=== PATIENT | female | born 1955 | race Caucasian/White ===

== ENCOUNTER 2017-03-22 08:48 | Day surgery (SDC) | payer BC ==
--- NOTE | 2017-03-14 19:32 | HP ---
HISTORY AND PHYSICAL: DATE OF ADMISSION: 03/22/17 She will be entering [facility] on 03/22/17 for a right knee arthroscopic surgery. CHIEF COMPLAINT: Right knee medial pain. HISTORY OF PRESENT ILLNESS: The patient is an avid hiker and she has been unable to do her workout activities for the past several months. She has a right knee medial meniscal tear with continued pain and problems. It has not responded to rest or physical therapy and right knee arthroscopic surgery has been recommended. PAST SURGICAL HISTORY: She is status post cholecystectomy and hysterectomy. MEDICATIONS: Daily meds include: 1. Synthroid 125 mcg each day. 2. Amlodipine 10 mg each day for hypertension. ALLERGIES: None to drugs. SOCIAL HISTORY: No smoking. Drinking is occasional, not daily, 1 glass of wine. REVIEW OF SYSTEMS: The patient has no history of chest pain or shortness of breath. She is able to do 2 flights of stairs without chest pain, without shortness of breath. Currently, she is doing that one at a time because of the right knee difficulties. No past history of cancer. No history of DVT or pulmonary embolism. No history of pneumonia or bronchitis. No kidney problems. No hepatitis. No bleeding tendencies or blood transfusions. PHYSICAL EXAMINATION GENERAL: She is well nourished, well developed, not acutely distressed. VITAL SIGNS: On current examination, 67 inches in height, 200 pounds. Blood pressure 132/78, the temp is 97.2. HEENT: The head is NC/AT. LUNGS: Clear bilaterally. HEART: Regular. S1, S2 normal. A small systolic murmur. ABDOMEN: Round, soft, nontender. There is no organomegaly. EXTREMITIES: The right knee has tenderness medially. Normal alignment. Stable MCL, LCL, Nova, and posterior drawer. The knee is nontender anterolaterally, posteriorly. The right posterior tibial pulse is 2+. The patient does an easy leg raise with a right knee extension 0, flexion is 115 degrees. NEUROLOGIC: The cranial nerves are grossly intact. DIAGNOSTIC STUDIES: The MRI scan was done in February showing a medial meniscal tear. IMPRESSION: Right knee medial meniscal tear. PLAN: Right knee arthroscopic surgery. [id number]/[facility] #: [id number] [facility]
[~2017-03-22 08:48] MED LIST: Buffered Lidocaine 0.9% SYRIN* 5 ML/SYR SYRINGE INTRADERM ONE; Midazolam* 1 MG/ML 2 ML VIAL (2 MG) ONE; fentaNYL* 50 MCG/ML 2 ML VIAL (100 MCG VIAL) ONE
[2017-03-22] MEDS ORDERED: ceFAZolin 2 GM PREMIX (*) 2 GM/50 ML BAG IVPB ONE (08:56)
[2017-03-22] MEDS ORDERED: Buffered Lidocaine 0.9% SYRIN* 5 ML/SYR SYRINGE ONE (08:56)
[2017-03-22] MEDS ORDERED: Lidocaine 1% MPF wEPI 200,000* 30 ML SDV ONE (10:43)
[2017-03-22] MEDS ORDERED: Propofol* 10 MG/ML 20 ML BTL IV PUSH ONE ×2 (12:26→12:57)
[2017-03-22] MEDS ORDERED: Ondansetron INJ* 2 MG/ML VIAL ONE (12:26)
[2017-03-22] MEDS ORDERED: Phenylephrine IV* 40 MCG/ML 10 ML SYRINGE ONE (12:26)
[2017-03-22] MEDS ORDERED: fentaNYL* 50 MCG/ML 2 ML VIAL (100 MCG VIAL) ONE (12:26)
[2017-03-22] MEDS ORDERED: Dexamethasone IV* 4 MG/ML 1 ML (4 MG) ONE (12:26)
[2017-03-22] MEDS ORDERED: Ketorolac INJ* 30 MG/ML 1 ML VIAL ONE (12:46)
[2017-03-22] MEDS ORDERED: Sevoflurane* 1 BTL ONE (12:46)
[2017-03-22] MEDS ORDERED: HYDROmorphone INJ* 1 MG/ML CARPUJECT SYRINGE ONE (14:15)
[2017-03-22 14:57] VITALS: BP 132/80
--- NOTE | 2017-03-23 04:05 | OP ---
DATE OF OPERATION: 08/27/16 - [facility] DATE OF : 51 SURGICAL CARE: Right knee. SURGEON: José Miguel Carter MD CLINICAL PROGRAM MANAGER: DES Dumas ANESTHESIOLOGIST: Dr. Joaquin. ANESTHESIA: LMA general. 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 POST-OP DIAGNOSIS: Loose bodies, right knee; patellofemoral chondromalacia and I felt the medial meniscus was in satisfactory condition for no surgical care. OPERATIVE PROCEDURE: Right knee, removal of loose bodies and chondroplasty of the patellofemoral joint. COMPLICATIONS: There were no complications. BLOOD LOSS: 50 mL. REPLACEMENT: Crystalloid fluids. Tourniquet control was utilized on the right thigh. DESCRIPTION OF PROCEDURE: The patient was brought to the operating room and placed on the operating room table in a supine position. Following the administration of the anesthetic, the right proximal thigh was wrapped with a tourniquet. The right knee was given a preliminary chlorhexidine prep and the leg was then prepped from the tourniquet to the foot and draped free and carefully sealed off in the usual fashion for arthroscopic surgery of the knee. After prepping, draping and sealing off, we did our universal protocol time- out confirming Kayla Vera and a plan for right knee arthroscopic surgery. We all agreed and we proceeded. The leg was exsanguinated. The tourniquet was elevated to 275. The right knee was set up for arthroscopy with the arthroscope lateral to the patellar tendon probe and operating instruments medial to the patellar tendon and inflow catheters superomedial to the patella. The irrigation of the joint showed that there were 4 loose bodies that were white and appeared to be cartilaginous. They were 1 to 2 mm in thickness x 3 mm in width x 4 mm in length. The knee was set up for arthroscopy and there was loose body in the patellofemoral joint that was similar in size to the ones already described. This was one more like 2 mm thick and 4 mm x 4 mm. The patella had cartilage yellowing, thinning and loss and the trochlea had cobblestoning and cartilage thinning and loss with some flaps. Both the patella and the trochlea were shaved from the medial and lateral portals in the course of the case. The medial and lateral gutters were clear. The posteromedial joint visualized through the intercondylar notch had loose body that was suctioned out. The posteromedial femoral condyle appeared to be satisfactory. The PCL appeared to be satisfactory as well as the ACL. The lateral femoral condyle, lateral tibial plateau, just slight cartilage where the lateral meniscus did not have any marked tearing that I could appreciate, the lateral meniscus was mobile with suctioning, but no loose flaps or loose ends. On the medial joint, the medial femoral condyle did have cartilage and some fissuring and flapping. This was shaved minimally. The medial meniscus was probed mid and posteriorly. There were no large flaps or large gaps that I could appreciate and I did not recommend any surgery there. The medial tibial plateau, some cartilage yellowing and thinning but no large flaps or tearing or loss. My impression was that the loose bodies were probably from the patellofemoral joint. Once the surgical care was complete, we did our further photographs. The knee was irrigated with another 3 L of saline irrigation solution after deflating the tourniquet and the skin was closed with interrupted 3-0 Surgipro and the knee was instilled with Xylocaine with epinephrine 28 to 30 mL. The knee was then washed and dried and covered with Betadine soaked release, followed by sterile gauze and sterile Webril, a cryotherapy cuff, ABD pads and a 6-inch Sukhi bandage loosely applied. The patient was returned to recovery room in stable and satisfactory condition, having tolerated the procedure every well. [id number]/[facility] #: [id number] MTDKarl
== END 2017-03-22 15:20 | disposition home or self-care (01) ==
LOC: OR 08:48
PROVIDERS: ATTEND Orthopaedic Surgery
DX: M94.261 Chondromalacia, right knee (principal); E03.9 Hypothyroidism, unspecified; I10 Essential (primary) hypertension; M23.41 Loose body in knee, right knee
CPT/HCPCS: 88304; A9270-GY; J0690; J1100; J1170; J1885; J2001; J2250; J2405; J2704; J3010

== ENCOUNTER 2017-08-21 12:51 | Emergency (ER) | payer BC ==
[2017-08-21 15:06] VITALS: BP 135/79
[2017-08-21] MEDS ORDERED: Tetracaine 0.5% OPTH.SOL 4 ML* 1 DROP BTL LEFT EYE ONE (15:19)
--- NOTE | 2017-08-21 15:19 | UC ---
General HPI - HPI Summary HPI Summary: pt was poked in her L eye by the end of some wire farm fencing yesterday. she was wearing a contact which remained intact and a piece of dirt remained which she was able to remove. she notes outside of the eye is irritated and red. wearing an old pair of glasses. last tetanus is not known. denies visual loss. - History of Current Complaint Chief Complaint: UCEye Stated Complaint: EYE COMPLAINT Time Seen by Provider: 08/21/17 15:07 Hx Obtained From: Patient Onset/Duration: Sudden Onset Timing: Constant Pain Intensity: 4 Aggravating: nothing Alleviating: nothing Associated Signs & Symptoms: Negative: Fever, Headache - Allergy/Home Medications Allergies/Adverse Reactions: Allergies Allergy/AdvReac Type Severity Reaction Status Date / Time No Known Allergies Allergy Verified 08/21/17 15:06 Home Medications: Home Medications Levothyroxine TAB* [Synthroid TAB*] 125 mcg PO DAILY 08/21/17 [History Confirmed 08/21/17] amLODIPine TAB* [Norvasc 5 mg TAB*] 10 mg PO DAILY 08/21/17 [History Confirmed 08/21/17] PMH/Surg Hx/FS Hx/Imm Hx Endocrine History: Thyroid Disease - Surgical History Surgical History: Yes Surgery Procedure, Year, and Place: HYSTERECTOMY-1997. gall bladder removal. Rt ANKLE - W/ SCREWS & PLATE - Family History Known Family History: Positive: None Family History: no cardio-vascular issues reported by patient - Social History Occupation: Retired Lives: With Family Alcohol Use: Occasionally Substance Use Type: None Smoking Status (MU): Never Smoked Tobacco Have You Smoked in the Last Year: No Review of Systems Eyes: Eye Redness - L Is Patient Immunocompromised?: No All Other Systems Reviewed And Are Negative: Yes Physical Exam Triage Information Reviewed: Yes Appearance: Well-Appearing Vital Signs: Initial Vital Signs Temp 99.9 F 08/21/17 15:01 Pulse 80 08/21/17 15:01 Resp 17 08/21/17 15:01 BP 135/79 08/21/17 15:01 Pulse Ox 99 08/21/17 15:01 Vital Signs Reviewed: Yes Eyes: Positive: Other: - vision od, ou, os 20/40 with old glasses. no periorbital edema or erythema. PERRL, EOMI, AC's clear. Lateral left eye injected with overt abrasion to naked eye. subconjuctival hemorrhage as well. tetracaine placed in L eye, lids everted and no FB's. Eye stained and no fluid leaking/no perforation, no dendrites. Horzontal abrasion to lateral sclera. No auricular adenopathy. ENT: Positive: Pharynx normal, TMs normal. Negative: Nasal congestion, Nasal drainage Neck: Positive: Supple, Nontender, No Lymphadenopathy Respiratory: Positive: Lungs clear, Normal breath sounds Cardiovascular: Positive: RRR, No Murmur Abdomen Description: Positive: Nontender, No Organomegaly, Soft Bowel Sounds: Positive: Present Musculoskeletal: Positive: ROM Intact Neurological: Positive: Alert Psychological: Positive: Age Appropriate Behavior Skin Exam: Normal Course/Dx - Course Course Of Treatment: no FB's or perforation. + scleral abrasion and subconjunctival hemorrhage. i was able to speak with Dr López. I will start pt on polytrim. Pt to f/u with them tomorrow for a recheck. - Differential Dx - Multi-Symptom Provider Diagnoses: Scleral abrasion and subconjunctival hemorrhage L eye Discharge - Sign-Out/Discharge Documenting (check all that apply): Discharge/Admit/Transfer - Discharge Plan Condition: Stable Disposition: HOME Prescriptions: Polymyx/Trimethoprim OPTH* [Polytrim OPHTH*] 1 drop LEFT EYE Q3H 7 Days #1 btl Patient Education Materials: Subconjunctival Hemorrhage (ED), Eye Foreign Body (ED) Referrals: Jayson Leung MD [Primary Care Provider] - If Needed Elaine López MD [Medical Doctor] - 1 Day Additional Instructions: CALL THE OFFICE OF DR LÓPEZ 8AM TOMORROW. ADVISE PAWEL BROWNLEE SPOKE TO HER AND SHE WOULD LIKE YOU SEEN Tuesday08/22/17 AND THEY WILL GET YOU IN. - Billing Disposition and Condition Condition: STABLE Disposition: HOME
[2017-08-21] MEDS ORDERED: Tetan/Diph/Pertus SYR(Tdap)* 0.5 ML SYR(BOOSTRIX) use SYR IM ONE (15:20)
[2017-08-21] MEDS ORDERED: Fluorescein Sod TOPICAL 0.6* 0.6 MG TEST OPHTHALMIC ONE (15:20)
== END 2017-08-21 16:07 | disposition home or self-care (01) ==
LOC: UCCORT 12:51
DX: S05.02XA Injury of conjunctiva and corneal abrasion without foreign body, left eye, initial encounter (principal); H11.32 Conjunctival hemorrhage, left eye; W22.8XXA Striking against or struck by other objects, initial encounter; Y93.89 Activity, other specified; Y92.9 Unspecified place or not applicable; E07.9 Disorder of thyroid, unspecified
CPT/HCPCS: 90471; 90715; 99212; A9270-GY; G0463

== ENCOUNTER 2018-02-22 07:14 | Emergency (ER) | payer BC ==
[2018-02-22 07:29] VITALS: BP 168/89
--- NOTE | 2018-02-22 08:38 | UC ---
Ear Complaint HPI - HPI Summary HPI Summary: 2 DAYS OF RIGHT EAR PAIN AND MUTED HEARING. SMALL AMOUNT OF DRAINAGE FROM THE EAR TODAY. DENIES FEVER OR URI SYMPTOMS. HAS BEEN DOING A LOT OF SWIMMING IN A POOL RECENTLY. - History of Current Complaint Chief Complaint: UCEar Stated Complaint: R EAR PAIN Time Seen by Provider: 02/22/18 07:18 Hx Obtained From: Patient Onset/Duration: Gradual Onset, Lasting Days, Still Present Severity Initially: Moderate Severity Currently: Moderate Pain Intensity: 2 Pain Scale Used: 0-10 Numeric Aggravating Factors: Nothing Alleviating Factors: Nothing Associated Signs/Symptoms: Positive: Discharge, Hearing Loss. Negative: URI Symptoms - Allergies/Home Medications Allergies/Adverse Reactions: Allergies Allergy/AdvReac Type Severity Reaction Status Date / Time No Known Allergies Allergy Verified 08/21/17 15:06 PMH/Surg Hx/FS Hx/Imm Hx Endocrine History: Hypothyroidism Cardiovascular History: Hypertension - Surgical History Surgical History: Yes Surgery Procedure, Year, and Place: HYSTERECTOMY-1997. gall bladder removal. Rt ANKLE - W/ SCREWS & PLATE - Family History Known Family History: Positive: Hypertension - Social History Alcohol Use: Weekly Substance Use Type: None Smoking Status (MU): Never Smoked Tobacco Have You Smoked in the Last Year: No Review of Systems Constitutional: Negative Respiratory: Negative Cardiovascular: Negative Gastrointestinal: Negative All Other Systems Reviewed And Are Negative: Yes Physical Exam Triage Information Reviewed: Yes Appearance: Well-Appearing, No Pain Distress, Well-Nourished Vital Signs: Initial Vital Signs Temp 98.7 F 02/22/18 07:22 Pulse 83 02/22/18 07:22 Resp 16 02/22/18 07:22 BP 168/89 02/22/18 07:22 Pulse Ox 99 02/22/18 07:22 Vital Signs Reviewed: Yes Eyes: Positive: Conjunctiva Clear ENT: Positive: Hearing grossly normal, Pharynx normal, Other - LEFT TM NORMAL. RIGHT EAR: EAC EDEMATOUS. TM NOT COMPLETELY VISUALIZED. PAIN WITH TRACTION ON PINNA AND PRESSURE ON TRAGUS Neck: Positive: Supple, Nontender, No Lymphadenopathy Respiratory: Positive: No respiratory distress, No accessory muscle use Cardiovascular: Positive: Pulses Normal Abdomen Description: Positive: Soft Musculoskeletal: Positive: No Edema Neurological: Positive: Alert Psychological: Positive: Age Appropriate Behavior Skin: Negative: rashes Ear Complaint Course/Dx - Differential Dx/Diagnosis Provider Diagnoses: RIGHT EAR OTITIS EXTERNA Discharge - Sign-Out/Discharge Documenting (check all that apply): Patient Departure All imaging exams completed and their final reports reviewed: No Studies - Discharge Plan Condition: Stable Disposition: HOME Prescriptions: Amoxicillin PO (*) [Amoxicillin 500 MG CAP*] 1,000 mg PO Q12H #28 cap Ciproflox/Dexameth OTIC.SUSP* [Ciprodex Otic*] 4 drop RIGHT EAR BID #1 bottle Patient Education Materials: Otitis Externa (ED) Referrals: Jayson Leung MD [Primary Care Provider] - If Needed Additional Instructions: YOUR BLOOD PRESSURE WAS ELEVATED TODAY (168/89). THIS MAY BE DUE TO YOUR ACUTE CONDITION. MONITOR AND FOLLOW-UP WITH YOUR PCP WITHIN 4 WEEKS IF IT HAS NOT RETURNED TO NORMAL. - Billing Disposition and Condition Condition: STABLE Disposition: Home
== END 2018-02-22 07:46 | disposition home or self-care (01) ==
LOC: UCEAST 07:14
DX: H60.91 Unspecified otitis externa, right ear (principal)
CPT/HCPCS: 99212; G0463

== ENCOUNTER 2019-02-17 09:54 | Emergency (ER) | payer MEDICARE ==
[2019-02-17 10:45] VITALS: BP 145/68
[2019-02-17] MEDS ORDERED: DOXYcycline CAP(*) 100 MG PO ONE (10:57)
--- NOTE | 2019-02-17 10:59 | UC ---
Skin Complaint HPI - HPI Summary HPI Summary: 63-year-old female presents with reports of a tick bite to her chest. States she found an engorged tick to her mid anterior chest this morning which she removed right away. States she has not been outdoors for the past couple of days so is pretty sure it is been attached for more than 36 hours. Denies fever , chills, rash, flulike illness, myalgias, joint pain or swelling. - History of Current Complaint Chief Complaint: UCSkin Time Seen by Provider: 02/17/19 10:48 Stated Complaint: TICK BITE Hx Obtained From: Patient Pain Intensity: 0 - Allergy/Home Medications Allergies/Adverse Reactions: Allergies Allergy/AdvReac Type Severity Reaction Status Date / Time No Known Allergies Allergy Verified 02/17/19 10:45 PMH/Surg Hx/FS Hx/Imm Hx Endocrine History: Hypothyroidism Cardiovascular History: Hypertension - Surgical History Surgical History: Yes Surgery Procedure, Year, and Place: HYSTERECTOMY-1997. gall bladder removal. Rt ANKLE - W/ SCREWS & PLATE - Family History Known Family History: Positive: Hypertension - Social History Occupation: Retired Lives: Alone Alcohol Use: Weekly Substance Use Type: None Smoking Status (MU): Never Smoked Tobacco Have You Smoked in the Last Year: No Review of Systems All Other Systems Reviewed And Are Negative: Yes Constitutional: Negative: Fever, Chills Skin: Positive: Other - See HPI. Negative: Rash Musculoskeletal: Negative: Arthralgia, Myalgia Neurological: Negative: Headache Is Patient Immunocompromised?: No Physical Exam - Summary Physical Exam Summary: GENERAL APPEARANCE: Well developed, well nourished, alert and cooperative, and appears to be in no acute distress. CARDIAC: Normal S1 and S2. No S3, S4 or murmurs. Rhythm is regular. There is no peripheral edema, cyanosis or pallor. Extremities are warm and well perfused. Capillary refill is less than 2 seconds. Peripheral pulses intact. LUNGS: Clear to auscultation without rales, rhonchi, wheezing or diminished breath sounds. ABDOMEN: Positive bowel sounds. Soft, nondistended, nontender. No guarding or rebound. No masses or hepatosplenomegally. MUSKULOSKELETAL: ROM intact to all extremities. No joint erythema or tenderness. Normal muscular development. Normal gait. SKIN: Skin normal color, texture and turgor. Small circular area of erythema <1 cm in diameter to mid anterior chest. Triage Information Reviewed: Yes Vital Signs: Initial Vital Signs Temp 98.6 F 02/17/19 10:43 Pulse 81 02/17/19 10:43 Resp 16 02/17/19 10:43 BP 145/68 02/17/19 10:43 Pulse Ox 99 02/17/19 10:43 Vital Signs Reviewed: Yes Course/Dx - Course Course Of Treatment: 63-year-old female presents with reports of a tick bite to her chest. States she found an engorged tick to her mid anterior chest this morning which she removed right away. States she has not been outdoors for the past couple of days so is pretty sure it is been attached for more than 36 hours. Denies fever , chills, rash, flulike illness, myalgias, joint pain or swelling. Afebrile. Vital signs stable. Patient had a small circular area of erythema <1 cm in diameter to mid anterior chest and otherwise unremarkable exam. With a history of the tick being engorged and likelihood was attached for more than 36 hours we 'll give her a prophylactic dose of doxycycline 200 mg 1 dose. She is to follow-up with her primary care provider as needed. I reviewed the signs and symptoms of Lyme disease as well as provided anticipatory guidance and warning symptoms to the patient. Verbalizes understanding and agrees with plan of care. - Differential Diagnoses - Skin Complaint Differential Diagnoses: Local Allergic Reaction, Tick Born Illness - Diagnoses Provider Diagnosis: Tick bite of chest wall Discharge ED - Sign-Out/Discharge Documenting (check all that apply): Patient Departure All imaging exams completed and their final reports reviewed: No Studies - Discharge Plan Condition: Stable Disposition: HOME Patient Education Materials: Tick Bite (ED) Referrals: Jayson Leung MD [Primary Care Provider] - If Needed Additional Instructions: You were given a dose of doxycycline 200 mg to help prevent Lyme disease. Ticks transmit infection only after they have attached and then taken a blood meal from their new host. A tick that has not attached cannot not pass any infection. Since the deer tick that transmits Lyme disease typically feeds for more than 36 hours before transmitting the organisim that causes Lyme disease, the risk of acquiring Lyme disease from an tick bite is extremely small, even in an area where the disease is common. There is no benefit of blood testing for Lyme disease at the time of the tick bite because even people who become infected will not have a positive blood test until approximately two to six weeks after the tick bite. To try to avoid getting bitten by a tick, you can: * Wear shoes, long-sleeved shirts, and long pants when you go outside. Keep ticks away from your skin by tucking your pants into your socks. * Wear light colors so you can spot any ticks that get on your clothes. * Wear bug spray or cream that contains DEET. (Do not use DEET on babies younger than 2 months.) On your clothes and gear, you can use bug repellents that have a chemical called "permethrin." * Shower within 2 hours of being outdoors if you think you have been in an area where there are ticks. * Put dry clothes briefly (for about 4 minutes) in a dryer after being outdoors. * Check your clothes and body for ticks after being outdoors. Be sure to check your scalp, waist, armpits, groin, and backs of your knees. Check your children , too. After a tick bite, you will need to monitor for signs of Lyme disease over the nexter several weeks even if you have been given antibiotics to prevent the infection. Seek immediate medical attention if you develop a bullseye rash, fever, flu-like symptoms including headache, stiff neck, fatigue, muscle aches, joint pain or swelling. - Billing Disposition and Condition Condition: STABLE Disposition: Home
== END 2019-02-17 11:10 | disposition home or self-care (01) ==
LOC: UCCORT 09:54
DX: S20.369A Insect bite (nonvenomous) of unspecified front wall of thorax, initial encounter (principal); I10 Essential (primary) hypertension; W57.XXXA Bitten or stung by nonvenomous insect and other nonvenomous arthropods, initial encounter; Y92.9 Unspecified place or not applicable
CPT/HCPCS: 99212; A9270-GY; G0463

== ENCOUNTER 2019-04-21 11:08 | Emergency (ER) | payer MEDICARE ==
[2019-04-21 11:40] VITALS: BP 165/81
[2019-04-21] MEDS ORDERED: Naproxen TAB* 250 MG PO ONE (11:56)
--- NOTE | 2019-04-21 12:12 | UC ---
Knee Pain HPI - HPI Summary HPI Summary: 63-year-old white female presented with twisting of right knee, associated with swelling. Patient states she twisted her right knee and now lateral suprapatellar region is extremely tender with difficulty with ambulation. Patient has had arthroscopy in the right knee as well as ORIF for right tibial fx about 10 years ago. - History of Current Complaint Chief Complaint: UCLowerExtremity Stated Complaint: RIGHT KNEE INJURY Time Seen by Provider: 04/21/19 11:31 Hx Obtained From: Patient Onset/Duration: Sudden Onset Severity Initially: Moderate Severity Currently: Moderate Pain Intensity: 4 - Allergies/Home Medications Allergies/Adverse Reactions: Allergies Allergy/AdvReac Type Severity Reaction Status Date / Time No Known Allergies Allergy Verified 04/21/19 11:40 Home Medications: Home Medications Ibuprofen TAB* [Motrin TAB* 400 MG] 400 mg PO Q6H PRN 04/21/19 [History Confirmed 04/21/19] PMH/Surg Hx/FS Hx/Imm Hx Previously Healthy: No - OBESE - Surgical History Surgical History: Yes Surgery Procedure, Year, and Place: HYSTERECTOMY-1997. gall bladder removal. Rt ANKLE - W/ SCREWS & PLATE - Family History Known Family History: Positive: Hypertension - Social History Alcohol Use: Weekly Substance Use Type: None Smoking Status (MU): Never Smoked Tobacco Have You Smoked in the Last Year: No Review of Systems All Other Systems Reviewed And Are Negative: Yes Constitutional: Positive: Negative Skin: Positive: Negative Eyes: Positive: Negative ENT: Positive: Negative Respiratory: Positive: Negative Cardiovascular: Positive: Negative Gastrointestinal: Positive: Negative Genitourinary: Positive: Negative Motor: Positive: Negative Neurovascular: Positive: Negative Musculoskeletal: Positive: Decreased ROM - right knee Neurological: Positive: Negative Psychological: Positive: Negative Physical Exam - Summary Physical Exam Summary: Appearance: Positive: No Pain Distress Skin: Positive: Warm Head/Face: Positive: Normal Head/Face Inspection Eyes: :Normal ENT: Normal ENT inspection Neck: Positive: Supple Respiratory/Lung Sounds: Positive: Clear to Auscultation. Cardiovascular: Positive: Normal, RRR, S1, S2 Abdomen : soft, NT/ND Musculoskeletal: Positive: TTP on right lateral suprapatellar, NEG jointline tenderness, NVI Neurological: Positive: CN 2-12 grossly intact Vital Signs: Initial Vital Signs Temp 37.4 C 04/21/19 11:33 Pulse 83 04/21/19 11:33 Resp 18 04/21/19 11:33 BP 165/81 04/21/19 11:33 Pulse Ox 98 04/21/19 11:33 Knee Pain Course/Dx - Course Course Of Treatment: XR of right knee NEG for fx ,just shows narrowing of medial compartment of the knee- RICE, NSAIDS< F/u with ortho, may need MRI to r/o tendinopathy - Differential Dx/Diagnosis Provider Diagnosis: Right knee sprain Discharge ED - Sign-Out/Discharge Documenting (check all that apply): Patient Departure All imaging exams completed and their final reports reviewed: Yes - Discharge Plan Condition: Stable Disposition: HOME Prescriptions: Naproxen [Naproxen 500 mg tab] 500 mg PO BID 10 Days #20 tablet Patient Education Materials: Knee Sprain (ED) Referrals: Jayson Leung MD [Primary Care Provider] - Additional Instructions: please follow up with orthopedics - Billing Disposition and Condition Condition: STABLE Disposition: Home
== END 2019-04-21 13:10 | disposition home or self-care (01) ==
LOC: UCCORT 11:08
DX: S83.411A Sprain of medial collateral ligament of right knee, initial encounter (principal); X50.1XXA Overexertion from prolonged static or awkward postures, initial encounter; Y92.9 Unspecified place or not applicable
CPT/HCPCS: 99212; A9270-GY; G0463

== ENCOUNTER 2020-01-17 08:37 | Observation (INO) ==
[~2020-01-17 08:37] MED LIST changes: -Buffered Lidocaine 0.9% SYRIN* 5 ML/SYR SYRINGE INTRADERM ONE; +Buffered Lidocaine 1% SYRIN 1 ml INTRADERM ONE; +Dexamethasone IV 4 MG/ML VIAL 1 ml VIAL IV SLOW PU ONE; +Dexamethasone IV 4 MG/ML VIAL 1 ml VIAL ONE; +Lactated Ringers 1000 ml BAG 1,000 ML IV SCH; -Midazolam* 1 MG/ML 2 ML VIAL (2 MG) ONE; +ceFAZolin 2 GM PREMIX 2 GM/50 ML BAG ONE; -fentaNYL* 50 MCG/ML 2 ML VIAL (100 MCG VIAL) ONE
[2020-01-17] MEDS ORDERED: Lidocaine 2% PF 10 ML AMP ONE ×2 (09:27→10:19)
[2020-01-17] MEDS ORDERED: Midazolam 2 mg/2 ml VIAL 1 mg/ml 2 ml VIAL (2 mg) ONE ×2 (09:55→11:35)
[2020-01-17] MEDS ORDERED: fentaNYL 100 mcg/2 ml 50 MCG/ML VIAL ONE ×2 (09:56→11:05)
[2020-01-17] MEDS ORDERED: ROPIVACAINE 5 MG/ML 30 ML BTL (0.5%) ONE ×2 (10:19→10:57)
[2020-01-17] MEDS ORDERED: Rocuronium 50 mg VIAL 10 mg/ml 5 ml VIAL (50 mg) ONE (11:01)
[2020-01-17] MEDS ORDERED: Naloxone 0.4 mg VIAL 0.4 mg/ml 1 ml VIAL IV PRN (11:54)
[2020-01-17] MEDS ORDERED: Ondansetron 4 mg VIAL 2 MG/ML 2 ml VIAL IV PRN ×2 (11:54→13:50)
[2020-01-17] MEDS ORDERED: HYDROmorphone 1 MG/1 ML SYRINGE IV PRN (11:54)
[2020-01-17] MEDS ORDERED: fentaNYL 100 mcg/2 ml 50 MCG/ML VIAL IV PRN (11:54)
[2020-01-17] MEDS ORDERED: diPHENhydraMINE 25 mg TAB PO PRN (13:50)
[2020-01-17] MEDS ORDERED: diPHENhydraMINE IV 50 MG/ML 1 ml VIAL (BENADRYL) IV PRN (13:50)
[2020-01-17] MEDS ORDERED: Lactulose 30 ml UDC PO PRN (13:50)
[2020-01-17] MEDS ORDERED: Ondansetron ODT 4 mg TAB 4 MG TAB PO PRN (13:50)
[2020-01-17] MEDS ORDERED: Magnesium Hydroxide LIQ 30 ML UDC PO PRN (13:50)
[2020-01-17] MEDS ORDERED: Morphine 2 MG/ML SYRINGE IV PRN (13:50)
[2020-01-17] MEDS ORDERED: oxyCODONE/Acetamin 5/325 mg TAB ONE (15:26)
[2020-01-17] MEDS ORDERED: Ondansetron ODT 4 mg TAB 4 MG TAB ONE (15:27)
[2020-01-17] MEDS: Lactated Ringers 1000 ml BAG 1,000 ML IV SCH (15:35)
[2020-01-17] MEDS: oxyCODONE/Acetamin 5/325 mg TAB PO PRN ×2 (15:38→23:55)
[2020-01-17] MEDS: ceFAZolin 1 GM ADVAN 1 GM in NS 0.9% 50 ML 50 ML IVPB SCH (19:31)
[2020-01-17] MEDS: Magnesium Hydroxide LIQ 30 ML UDC PO SCH (21:28)
[2020-01-18] MEDS: Lactated Ringers 1000 ml BAG 1,000 ML IV SCH (01:04)
[2020-01-18] MEDS: ceFAZolin 1 GM ADVAN 1 GM in NS 0.9% 50 ML 50 ML IVPB SCH ×2 (03:35→11:52)
[2020-01-18 07:04] LABS: Hematocrit 37 % (35-47); Mean Platelet Volume 7.8 fL (7.4-10.4); Platelet Count 300 10^3/uL (150-450)
[2020-01-18 07:29] LABS: BUN/Creatinine Ratio 21.2 (8-20); Calcium 8.3 mg/dL (8.6-10.3); EGFR African American 108.4 (>60); EGFR Non-African American 89.6 (>60); Potassium 4.1 mmol/L (3.5-5.0)
[2020-01-18] MEDS ORDERED: Vitamin THERAPEUTIC TAB PO SCH (09:00)
[2020-01-18] MEDS: oxyCODONE/Acetamin 5/325 mg TAB PO PRN ×2 (09:33→13:37)
[2020-01-18] MEDS: Magnesium Hydroxide LIQ 30 ML UDC PO SCH (09:34)
[2020-01-18 12:00] VITALS: BP 146/76
== END 2020-01-18 13:50 | disposition home or self-care (01) ==
LOC: SSU 08:37 → OR 08:37
PROVIDERS: ADMIT Orthopaedic Surgery Adult Reconstructive Orthopaedic Surgery; ATTEND Orthopaedic Surgery Adult Reconstructive Orthopaedic Surgery